=== PATIENT | female | born 2000 | race Caucasian/White ===

== ENCOUNTER → 2024-02-23 | Outpatient (CLI) | payer BC, SELFPAY ==
[2024-02-23 17:11] LABS: Beta HCG,Quantitative 89 mIU/mL (<5.0)
[2024-03-02 13:38] LABS: Progesterone,LC/MS* 19.3 ng/mL
== END | disposition home or self-care (01) ==
LOC: SLDO 15:28
PROVIDERS: Referring Provider Specialist; Visit Provider Specialist
DX: N91.1 Secondary amenorrhea (principal)
CPT/HCPCS: 36415; 84144; 84702

== ENCOUNTER → 2024-02-27 | Outpatient (CLI) | payer BC, SELFPAY ==
[2024-02-27 17:56] LABS: Beta HCG,Quantitative 558 mIU/mL (<5.0)
[2024-03-06 06:45] LABS: Progesterone,LC/MS* 16.7 ng/mL
== END | disposition home or self-care (01) ==
LOC: SLDO 16:14
PROVIDERS: Referring Provider Specialist; Visit Provider Specialist
DX: N91.1 Secondary amenorrhea (principal)
CPT/HCPCS: 36415; 84144; 84702

== ENCOUNTER → 2024-03-01 | Outpatient (CLI) | payer BC, SELFPAY ==
[2024-03-01 10:04] LABS: Quantiferon-TB* See Sep Rpt
== END | disposition home or self-care (01) ==
LOC: COPL 09:45
PROVIDERS: PCP Registered Nurse; Referring Provider Registered Nurse; Visit Provider Registered Nurse
DX: Z11.1 Encounter for screening for respiratory tuberculosis (principal)
CPT/HCPCS: 86480

== ENCOUNTER → 2024-03-15 | Outpatient (CLI) | payer BC, SELFPAY ==
[2024-03-15 11:02] LABS: Collection Type, Urine Clean Catch
[2024-03-15 11:22] LABS: Basophils # (Auto) 0.1 Thou/mm3 (0.0-0.2); Basophils % (Auto) 1 % (0-2.5); Eosinophils # (Auto) 0.1 Thou/mm3 (0.0-0.5); Eosinophils % (Auto) 1 % (0-10); Hematocrit 35.8 % (36.0-46.0); Immature Granulocytes % (Auto) 0 % (0-0); Immature Granulocytes Auto 0.02 Thou/mm3 (0.00-0.00); Lymphocytes # (Auto) 2.8 Thou/mm3 (1.0-4.8); Lymphocytes % (Auto) 31 % (10-50); Mean Corpuscular HGB Conc 33.5 g/dl (31.0-37.0); Mean Corpuscular Hemoglobin 29.6 pg (25.0-35.0); Mean Corpuscular Volume 88 fL (80-100); Monocytes # (Auto) 0.6 Thou/mm3 (0.0-0.8); Monocytes % (Auto) 7 % (0-12); Neutrophils # (Auto) 5.4 Thou/mm3 (1.8-7.7); Neutrophils % (Auto) 60 % (37-80); Nucleated Red Blood Cell % 0 /100 WBC (0); Platelet Count 219 Thou/mm3 (140-440); RDW Standard Deviation 40.8 fL (36.4-46.3); Red Blood Count 4.06 Miln/mm3 (4.00-5.20)
[2024-03-15 11:25] LABS: Bacteria,Urine Rare; Bilirubin,Urine Negative (Negative); Blood,Urine 2+ (Negative); Clarity,Urine Clear (Clear/Hazy); Color,Urine Yellow (Lt Yel-Yel); Glucose, Urine Negative (Negative); Ketones,Urine Negative (Negative); Leukocyte Esterase,Urine Positive (Negative); Nitrite,Urine Negative (Negative); PH,Urine 6.5 (5.0-7.0); Protein,Urine Trace (Neg - Trace); RBC,Urine 7 /hpf (0-3); Specific Gravity,Urine 1.029 (1.001-1.035); Squamous Epithelial Cell,Urine 3 /hpf (0-5); Urobilinogen,Urine Negative mg/dL (0.0-1.0); WBC,Urine 4 /hpf (0-5)
== END | disposition home or self-care (01) ==
LOC: COPL 10:21
PROVIDERS: PCP Family Medicine; Referring Provider Registered Nurse; Visit Provider Registered Nurse
DX: Z01.89 Encounter for other specified special examinations (principal)
CPT/HCPCS: 36415; 81001; 85025

== ENCOUNTER → 2024-03-26 | Outpatient (CLI) | payer BC, SELFPAY ==
[2024-03-26 17:56] LABS: Calcium 9.9 mg/dL (8.3-10.6)
[2024-03-26 18:02] LABS: Ferritin 142 ng/mL (7.3-270.7)
[2024-03-26 19:27] LABS: Folate > 24.00 ng/mL (>5.38); Vitamin B12 765 pg/mL (211-911); Vitamin D 25 Hydroxy Total 40.1 ng/mL (7.3-40.2)
== END | disposition home or self-care (01) ==
LOC: SLDO 16:47
PROVIDERS: Referring Provider Specialist; Visit Provider Specialist
DX: Z98.84 Bariatric surgery status (principal)
CPT/HCPCS: 36415; 82306; 82310; 82607; 82728; 82746

== ENCOUNTER → 2024-04-26 | Outpatient (CLI) | payer BC, SELFPAY ==
[2024-04-26 15:19] LABS: Collection Type, Urine Clean Catch
[2024-04-26 16:54] LABS: Amphetamine/Methamp Scrn,U Negative (Negative); Barbiturate Screen,Urine Negative (Negative); Benzodiazepines Screen,Urine Negative (Negative); Benzoylecgonine Screen, Ur Negative (Negative); Fentanyl Screen,Urine Negative (Negative); Opiate Screen,Urine Negative (Negative); THC Screen,Urine Negative (Negative)
[2024-04-26 16:59] LABS: Bilirubin,Urine Negative (Negative); Blood,Urine 1+ (Negative); Calcium Oxalate Crystals,Urine 1+; Clarity,Urine Clear (Clear/Hazy); Color,Urine Yellow (Lt Yel-Yel); Glucose, Urine Negative (Negative); Ketones,Urine Negative (Negative); Leukocyte Esterase,Urine Negative (Negative); Nitrite,Urine Negative (Negative); Protein,Urine Trace (Neg - Trace); RBC,Urine 15 /hpf (0-3); Specific Gravity,Urine 1.036 (1.001-1.035); Squamous Epithelial Cell,Urine 3 /hpf (0-5); Urobilinogen,Urine Negative mg/dL (0.0-1.0); WBC,Urine 1 /hpf (0-5)
[2024-04-27 10:13] LABS: BVAG Candida Negative (Negative); Bacterial Vaginosis Markers Negative (Negative); Candida glabrata Negative (Negative); Candida krusei PCR Negative (Negative); Trichomonas Negative (Negative)
== END | disposition home or self-care (01) ==
LOC: SLDO 14:41
PROVIDERS: Referring Provider Physician Assistant Medical; Visit Provider Physician Assistant Medical
DX: Z34.81 Encounter for supervision of other normal pregnancy, first trimester (principal); B37.89 Other sites of candidiasis; Z76.0 Encounter for issue of repeat prescription; A59.01 Trichomonal vulvovaginitis
CPT/HCPCS: 80307; 81001; 81514; 87077; 87086; 87186

== ENCOUNTER → 2024-05-21 | Outpatient (CLI) | payer BC, SELFPAY ==
[2024-05-21 14:35] LABS: Misc Send Out* See Sep Rpt
[2024-05-21 15:42] LABS: Basophils % (Auto) 0 % (0-2.5); Eosinophils # (Auto) 0.1 Thou/mm3 (0.0-0.5); Eosinophils % (Auto) 1 % (0-10); Hematocrit 32.6 % (36.0-46.0); Hemoglobin 11.2 g/dL (12.0-16.0); Immature Granulocytes % (Auto) 0 % (0-0); Immature Granulocytes Auto 0.04 Thou/mm3 (0.00-0.00); Lymphocytes # (Auto) 2.3 Thou/mm3 (1.0-4.8); Lymphocytes % (Auto) 20 % (10-50); Mean Corpuscular HGB Conc 34.4 g/dl (31.0-37.0); Mean Corpuscular Hemoglobin 30.8 pg (25.0-35.0); Mean Corpuscular Volume 90 fL (80-100); Monocytes # (Auto) 0.6 Thou/mm3 (0.0-0.8); Monocytes % (Auto) 5 % (0-12); Neutrophils # (Auto) 8.1 Thou/mm3 (1.8-7.7); Neutrophils % (Auto) 73 % (37-80); Nucleated Red Blood Cell % 0 /100 WBC (0); Platelet Count 252 Thou/mm3 (140-440); RDW Standard Deviation 44.3 fL (36.4-46.3); Red Blood Count 3.64 Miln/mm3 (4.00-5.20); White Blood Count 11.1 Thou/mm3 (3.6-11.0)
[2024-05-21 16:18] LABS: Creatinine (Component) 0.6 mg/dL (0.6-1.3); Glucose 84 mg/dL (74-106); eGFR > 60 See Note
[2024-05-21 16:19] LABS: Hepatitis B Surface Antigen Non Reactive (Non React); Rubella, IgG Antibody Reactive (Immune)
[2024-05-21 16:35] LABS: Glucose Estimated Average 82 mg/dL (80-131); Hemoglobin A1C 4.5 % Hgb (4.8-6.0)
[2024-05-21 16:48] LABS: Beta HCG,Quantitative 21747 mIU/mL (<5.0)
[2024-05-25 06:38] LABS: HIV Ag/Ab, 4th Gen NON-REACTIVE
== END | disposition home or self-care (01) ==
LOC: COPL 14:13
PROVIDERS: PCP Family Medicine; Referring Provider Physician Assistant Medical; Visit Provider Physician Assistant Medical
DX: Z34.81 Encounter for supervision of other normal pregnancy, first trimester (principal); Z3A.00 Weeks of gestation of pregnancy not specified
CPT/HCPCS: 36415; 81220; 82565; 82947; 83036; 84702; 85025; 86762; 86803; 86850; 86900; 86901; 87340; 87389

== ENCOUNTER → 2024-05-25 | Outpatient (CLI) | payer BC, SELFPAY ==
[2024-05-25 18:04] LABS: Free T4 (Free Thyroxine) 1.19 ng/dL (0.89-1.76); Thyroid Stimulating Hormone 0.87 uIU/mL (0.55-4.78)
== END | disposition home or self-care (01) ==
LOC: SLDO 15:32
PROVIDERS: Referring Provider Specialist; Visit Provider Specialist
DX: Z34.82 Encounter for supervision of other normal pregnancy, second trimester (principal)
CPT/HCPCS: 36415; 81514; 84439; 84443; 87086

== ENCOUNTER → 2024-06-22 | Outpatient (CLI) | payer BC, SELFPAY ==
[2024-06-22 12:03] LABS: Basophils % (Auto) 0 % (0-2.5); Eosinophils # (Auto) 0.1 Thou/mm3 (0.0-0.5); Eosinophils % (Auto) 1 % (0-10); Hematocrit 33.6 % (36.0-46.0); Hemoglobin 11.2 g/dL (12.0-16.0); Immature Granulocytes % (Auto) 0 % (0-0); Immature Granulocytes Auto 0.02 Thou/mm3 (0.00-0.00); Lymphocytes # (Auto) 2.2 Thou/mm3 (1.0-4.8); Lymphocytes % (Auto) 22 % (10-50); Mean Corpuscular HGB Conc 33.3 g/dl (31.0-37.0); Mean Corpuscular Volume 93 fL (80-100); Monocytes # (Auto) 0.6 Thou/mm3 (0.0-0.8); Monocytes % (Auto) 6 % (0-12); Neutrophils % (Auto) 71 % (37-80); Nucleated Red Blood Cell % 0 /100 WBC (0); Platelet Count 220 Thou/mm3 (140-440); RDW Standard Deviation 45.5 fL (36.4-46.3); Red Blood Count 3.61 Miln/mm3 (4.00-5.20); White Blood Count 9.9 Thou/mm3 (3.6-11.0)
[2024-06-22 12:24] LABS: Ferritin 67 ng/mL (7.3-270.7); Iron 77 mcg/dL (50-170)
[2024-06-22 12:31] LABS: Albumin, Serum 3.7 gm/dL (3.5-5.0); Albumin/Globulin Ratio 1.4 (1.2-2.2); Alkaline Phosphatase 53 U/L (46-116); Anion Gap 7 (7-16); Aspartate Amino Transferase 10 U/L (0-34); BUN/Creatinine Ratio 10 Ratio (12-20); Bilirubin,Total 0.4 mg/dL (0.3-1.2); Blood Urea Nitrogen 6 mg/dL (9-23); Calcium 9.1 mg/dL (8.3-10.6); Calcium (Corrected) 9.3 mg/dL (8.5-10.1); Carbon Dioxide 25.2 mMol/L (20.0-31.0); Chloride 107 mMol/L (98-107); Creatinine (Component) 0.6 mg/dL (0.6-1.3); Free T4 (Free Thyroxine) 1.15 ng/dL (0.89-1.76); Globulin 2.6 gm/dL (2.3-3.5); Glucose 86 mg/dL (74-106); Osmolality,Calculated 274 (275-295); Potassium 4.5 mMol/L (3.4-5.1); Sodium 139 mMol/L (136-145); Thyroid Stimulating Hormone 1.04 uIU/mL (0.55-4.78); Total Protein 6.3 gm/dL (5.7-8.2); eGFR > 60 See Note
[2024-06-22 12:32] LABS: Alanine Aminotransferase < 7 U/L (10-49)
[2024-06-22 13:04] LABS: Vitamin B12 432 pg/mL (211-911)
[2024-06-22 13:20] LABS: Folate > 24.00 ng/mL (>5.38); Vitamin D 25 Hydroxy Total 32.9 ng/mL (7.3-40.2)
== END | disposition home or self-care (01) ==
LOC: COPL 11:16
PROVIDERS: PCP Family Medicine; Referring Provider Physician Assistant Medical; Visit Provider Physician Assistant Medical
DX: Z98.84 Bariatric surgery status (principal)
CPT/HCPCS: 36415; 80053; 82306; 82607; 82728; 82746; 83540; 84439; 84443; 85025

== ENCOUNTER → 2024-07-20 | Outpatient (CLI) | payer BC, SELFPAY | END | disposition home or self-care (01) | LOC: SLDO 14:41 | PROVIDERS: Referring Provider Physician Assistant Medical; Visit Provider Physician Assistant Medical | DX: Z34.82 Encounter for supervision of other normal pregnancy, second trimester (principal) | CPT/HCPCS: 87086 ==

== ENCOUNTER → 2024-08-22 | Outpatient (CLI) | payer BC, SELFPAY ==
[2024-08-22 16:32] LABS: Basophils # (Auto) 0.1 Thou/mm3 (0.0-0.2); Basophils % (Auto) 1 % (0-2.5); Eosinophils # (Auto) 0.1 Thou/mm3 (0.0-0.5); Eosinophils % (Auto) 1 % (0-10); Hematocrit 35.9 % (36.0-46.0); Immature Granulocytes % (Auto) 1 % (0-0); Immature Granulocytes Auto 0.04 Thou/mm3 (0.00-0.00); Lymphocytes # (Auto) 1.7 Thou/mm3 (1.0-4.8); Lymphocytes % (Auto) 20 % (10-50); Mean Corpuscular HGB Conc 33.4 g/dl (31.0-37.0); Mean Corpuscular Hemoglobin 31.2 pg (25.0-35.0); Mean Corpuscular Volume 93 fL (80-100); Monocytes # (Auto) 0.4 Thou/mm3 (0.0-0.8); Monocytes % (Auto) 5 % (0-12); Neutrophils # (Auto) 6.2 Thou/mm3 (1.8-7.7); Neutrophils % (Auto) 73 % (37-80); Nucleated Red Blood Cell % 0 /100 WBC (0); Platelet Count 254 Thou/mm3 (140-440); RDW Standard Deviation 45.6 fL (36.4-46.3); Red Blood Count 3.85 Miln/mm3 (4.00-5.20); White Blood Count 8.5 Thou/mm3 (3.6-11.0)
[2024-08-22 16:46] LABS: Vitamin B12 409 pg/mL (211-911); Vitamin D 25 Hydroxy Total 40.2 ng/mL (7.3-40.2)
[2024-08-22 17:23] LABS: Syphilis Nonreactive (Nonreactive)
== END | disposition home or self-care (01) ==
LOC: SLDO 14:39
PROVIDERS: Referring Provider Specialist; Visit Provider Specialist
DX: Z98.84 Bariatric surgery status (principal)
CPT/HCPCS: 36415; 82306; 82607; 85025; 86780; 87086

== ENCOUNTER → 2024-08-29 | Outpatient (CLI) | payer BC, SELFPAY ==
[2024-08-29 14:59] LABS: Basophils % (Auto) 0 % (0-2.5); Eosinophils # (Auto) 0.1 Thou/mm3 (0.0-0.5); Eosinophils % (Auto) 1 % (0-10); Hematocrit 33.8 % (36.0-46.0); Hemoglobin 11.7 g/dL (12.0-16.0); Immature Granulocytes % (Auto) 0 % (0-0); Immature Granulocytes Auto 0.03 Thou/mm3 (0.00-0.00); Lymphocytes # (Auto) 1.6 Thou/mm3 (1.0-4.8); Lymphocytes % (Auto) 18 % (10-50); Mean Corpuscular HGB Conc 34.6 g/dl (31.0-37.0); Mean Corpuscular Hemoglobin 31.3 pg (25.0-35.0); Mean Corpuscular Volume 90 fL (80-100); Monocytes # (Auto) 0.5 Thou/mm3 (0.0-0.8); Monocytes % (Auto) 6 % (0-12); Neutrophils # (Auto) 6.4 Thou/mm3 (1.8-7.7); Neutrophils % (Auto) 75 % (37-80); Nucleated Red Blood Cell % 0 /100 WBC (0); Platelet Count 224 Thou/mm3 (140-440); RDW Standard Deviation 43.6 fL (36.4-46.3); Red Blood Count 3.74 Miln/mm3 (4.00-5.20); White Blood Count 8.6 Thou/mm3 (3.6-11.0)
[2024-08-29 15:03] LABS: Parathyroid Hormone Intact 13.3 pg/ml (18.5-88.0)
[2024-08-29 15:15] LABS: Alanine Aminotransferase 8 U/L (10-49); Albumin, Serum 3.9 gm/dL (3.5-5.0); Albumin/Globulin Ratio 1.6 (1.2-2.2); Alkaline Phosphatase 63 U/L (46-116); Anion Gap 8 (7-16); Aspartate Amino Transferase 11 U/L (0-34); BUN/Creatinine Ratio 10 Ratio (12-20); Bilirubin,Total 0.3 mg/dL (0.3-1.2); Blood Urea Nitrogen 6 mg/dL (9-23); Calcium (Corrected) 9.1 mg/dL (8.5-10.1); Carbon Dioxide 23.7 mMol/L (20.0-31.0); Chloride 107 mMol/L (98-107); Creatinine (Component) 0.6 mg/dL (0.6-1.3); Ferritin 23 ng/mL (7.3-270.7); Globulin 2.5 gm/dL (2.3-3.5); Glucose 108 mg/dL (74-106); Iron 74 mcg/dL (50-170); Osmolality,Calculated 276 (275-295); Sodium 139 mMol/L (136-145); Total Iron Binding Capacity 400 mcg/dL (250-425); Total Protein 6.4 gm/dL (5.7-8.2); eGFR > 60 See Note
[2024-08-29 15:20] LABS: Folate > 24.00 ng/mL (>5.38); Vitamin B12 438 pg/mL (211-911)
[2024-09-04 07:03] LABS: Vitamin D,1,25 (OH)2,Total 146 pg/mL (18-72)
[2024-09-04 07:04] LABS: Vitamin D2, 1,25 (OH)2 <8 pg/mL; Vitamin D3, 1,25 (OH)2 146 pg/mL
[2024-09-05 06:44] LABS: Vitamin B1 (Thiamine)* 15 nmol/L (8-30); Vitamin B6, Plasma* 11.1 ng/mL (2.1-21.7)
== END | disposition home or self-care (01) ==
LOC: COPL 14:04
PROVIDERS: PCP Family Medicine; Referring Provider Nurse Practitioner Primary Care; Visit Provider Nurse Practitioner Primary Care
DX: O99.212 Obesity complicating pregnancy, second trimester (principal); E66.811 Obesity, class 1; K91.2 Postsurgical malabsorption, not elsewhere classified; Z3A.16 16 weeks gestation of pregnancy; Z90.3 Acquired absence of stomach [part of]; O99.842 Bariatric surgery status complicating pregnancy, second trimester; O99.612 Diseases of the digestive system complicating pregnancy, second trimester
CPT/HCPCS: 36415; 80053; 82607; 82652; 82728; 82746; 83540; 83550; 83970; 84207; 84425; 85025

== ENCOUNTER → 2024-09-04 | Outpatient (CLI) | payer BC, SELFPAY ==
[2024-09-04 14:22] LABS: Basophils # (Auto) 0.1 Thou/mm3 (0.0-0.2); Basophils % (Auto) 1 % (0-2.5); Eosinophils # (Auto) 0.1 Thou/mm3 (0.0-0.5); Eosinophils % (Auto) 1 % (0-10); Hematocrit 33.7 % (36.0-46.0); Hemoglobin 11.5 g/dL (12.0-16.0); Immature Granulocytes % (Auto) 0 % (0-0); Immature Granulocytes Auto 0.04 Thou/mm3 (0.00-0.00); Lymphocytes % (Auto) 21 % (10-50); Mean Corpuscular HGB Conc 34.1 g/dl (31.0-37.0); Mean Corpuscular Hemoglobin 31.3 pg (25.0-35.0); Mean Corpuscular Volume 92 fL (80-100); Monocytes # (Auto) 0.6 Thou/mm3 (0.0-0.8); Monocytes % (Auto) 6 % (0-12); Neutrophils # (Auto) 6.9 Thou/mm3 (1.8-7.7); Neutrophils % (Auto) 72 % (37-80); Nucleated Red Blood Cell % 0 /100 WBC (0); Platelet Count 220 Thou/mm3 (140-440); Red Blood Count 3.67 Miln/mm3 (4.00-5.20); White Blood Count 9.6 Thou/mm3 (3.6-11.0)
[2024-09-04 14:30] LABS: Fibrinogen 430 mg/dL (175-375); Partial Thromboplastin Time 29.2 Seconds (22.0-36.0); Prothrombin Time 10.6 Seconds (9.0-12.2)
[2024-09-04 14:30] LABS: Creatinine,Random Urine 80 mg/dL (30-125); Protein Total, Random Urine 12 mg/dL (1-14)
[2024-09-04 14:52] LABS: Alanine Aminotransferase < 7 U/L (10-49); Albumin, Serum 3.9 gm/dL (3.5-5.0); Albumin/Globulin Ratio 1.6 (1.2-2.2); Alkaline Phosphatase 66 U/L (46-116); Anion Gap 7 (7-16); Aspartate Amino Transferase 12 U/L (0-34); BUN/Creatinine Ratio 10 Ratio (12-20); Bilirubin,Total 0.4 mg/dL (0.3-1.2); Blood Urea Nitrogen 6 mg/dL (9-23); Calcium 8.6 mg/dL (8.3-10.6); Calcium (Corrected) 8.7 mg/dL (8.5-10.1); Carbon Dioxide 24.6 mMol/L (20.0-31.0); Chloride 103 mMol/L (98-107); Creatinine (Component) 0.6 mg/dL (0.6-1.3); Globulin 2.5 gm/dL (2.3-3.5); Glucose 82 mg/dL (74-106); Osmolality,Calculated 266 (275-295); Potassium 4.4 mMol/L (3.4-5.1); Sodium 135 mMol/L (136-145); Total Protein 6.4 gm/dL (5.7-8.2); Uric Acid 4.2 mg/dL (3.1-7.8); eGFR > 60 See Note
== END | disposition home or self-care (01) ==
LOC: COPL 13:19
PROVIDERS: PCP Family Medicine; Referring Provider Physician Assistant Medical; Visit Provider Physician Assistant Medical
DX: R03.0 Elevated blood-pressure reading, without diagnosis of hypertension (principal)
CPT/HCPCS: 36415; 80053; 82570; 84156; 84550; 85025; 85384; 85610; 85730

== ENCOUNTER → 2024-09-06 | Outpatient (CLI) | payer BC, SELFPAY ==
[2024-09-06 12:19] LABS: Creatinine, Urine Volume 2575 mL/24hr (600-1800); Protein Total, Urine Volume 2575 mL/24hr (600-1800)
[2024-09-06 12:35] LABS: Creatinine, 24 Hour Urine 1.1 gm/24hr (0.6-1.8); Creatinine,Urine 43 mg/dL (30-125); Protein Total, 24 hr Urine 154 mg/24hr (<149); Protein Total, Urine < 6 mg/dL (1-14)
== END | disposition home or self-care (01) ==
LOC: SLDO 11:18
PROVIDERS: Referring Provider Physician Assistant Medical; Visit Provider Physician Assistant Medical
DX: R03.0 Elevated blood-pressure reading, without diagnosis of hypertension (principal)
CPT/HCPCS: 82570; 84156

== ENCOUNTER 2024-10-02 11:26 | Outpatient (CLI) | payer BC, SELFPAY ==
[2024-10-02 11:31] VITALS: BP 137/87; PULSE 107; RESP 16; RESP 96; TEMP 36.7
[2024-10-02 11:33] VITALS: PULSE 105; O2SAT 96
[2024-10-02 11:38] VITALS: PULSE 105; O2SAT 98
[2024-10-02 11:39] VITALS: BMI 34.7
[2024-10-02 11:43] VITALS: PULSE 97; O2SAT 98
[2024-10-02 11:48] VITALS: PULSE 99; O2SAT 97
[2024-10-02 11:51] VITALS: BP 126/82; PULSE 101
== END 2024-10-02 12:00 | disposition home or self-care (01) ==
LOC: S4S1 11:27 → S4SX 11:27
PROVIDERS: Referring Provider Obstetrics & Gynecology; Visit Provider Obstetrics & Gynecology
DX: Z36.89 Encounter for other specified antenatal screening (principal); Z34.03 Encounter for supervision of normal first pregnancy, third trimester; Z3A.35 35 weeks gestation of pregnancy
CPT/HCPCS: 59025

== ENCOUNTER → 2024-10-02 | Outpatient (CLI) | payer BC, SELFPAY | END | disposition home or self-care (01) | LOC: SLDO 14:39 | PROVIDERS: Referring Provider Physician Assistant Medical; Visit Provider Physician Assistant Medical | DX: Z34.83 Encounter for supervision of other normal pregnancy, third trimester (principal) | CPT/HCPCS: 87086 ==

== ENCOUNTER → 2024-10-09 | Outpatient (CLI) | payer BC, SELFPAY ==
[2024-10-10 07:39] LABS: BVAG Candida Negative (Negative); Bacterial Vaginosis Markers Negative (Negative); Candida glabrata Negative (Negative); Candida krusei PCR Negative (Negative); Trichomonas Negative (Negative)
== END | disposition home or self-care (01) ==
LOC: SLDO 14:36
PROVIDERS: Referring Provider Specialist; Visit Provider Specialist
DX: Z34.83 Encounter for supervision of other normal pregnancy, third trimester (principal)
CPT/HCPCS: 81514

== ENCOUNTER 2024-10-11 17:18 | Observation (INO) | payer BC, SELFPAY ==
[2024-10-11 17:22] VITALS: BMI 35.0
[2024-10-11 17:33] VITALS: BP 142/87; PULSE 96
[2024-10-11 17:44] VITALS: BP 142/87; PULSE 96; RESP 18; RESP 99; TEMP 36.7
[2024-10-11 18:01] LABS: ROM Kit Exp Date# 11152027; ROM Kit Lot # 58102387; ROM Swab Mixed By: SAUCT; Rupture of Fetal Membranes Negative (Negative); Swb Mxed in Solvent 1 min? Yes
== END 2024-10-11 18:25 | disposition home or self-care (01) ==
PROVIDERS: Admitting Provider Specialist; Visit Provider Specialist
DX: Z34.03 Encounter for supervision of normal first pregnancy, third trimester (principal); Z3A.40 40 weeks gestation of pregnancy
CPT/HCPCS: 59025; 59899; 84112

== ENCOUNTER 2024-10-24 19:00 | Observation (INO) | payer BC, SELFPAY ==
[2024-10-24 19:25] VITALS: BMI 34.7
[2024-10-24 19:40] VITALS: BP 133/78; PULSE 96
[2024-10-24 20:09] VITALS: BP 116/77; PULSE 90
[2024-10-24 20:40] VITALS: BP 132/78; PULSE 85
[2024-10-24 21:08] VITALS: BP 117/68; PULSE 74
== END 2024-10-24 21:35 | disposition home or self-care (01) ==
PROVIDERS: Admitting Provider Obstetrics & Gynecology; Visit Provider Obstetrics & Gynecology
DX: O9A.213 Injury, poisoning and certain other consequences of external causes complicating pregnancy, third trimester (principal); S39.91XA Unspecified injury of abdomen, initial encounter; Z3A.38 38 weeks gestation of pregnancy; W19.XXXA Unspecified fall, initial encounter
CPT/HCPCS: 59025; 59899

== ENCOUNTER 2024-11-01 19:44 | Observation (INO) | payer BC, SELFPAY ==
[2024-11-01] VITALS (29 sets, daily range): BP systolic 95–127; BP diastolic 55–79; PULSE 58–91; RESP 18; TEMP 36.9; O2SAT 94–99; BMI 35.0
[2024-11-01 21:14] LABS: Collection Type, Urine Clean Catch
[2024-11-01 21:31] LABS: Bilirubin,Urine Negative (Negative); Blood,Urine Negative (Negative); Clarity,Urine Clear (Clear/Hazy); Color,Urine Lt-Yellow (Lt Yel-Yel); Glucose, Urine Negative (Negative); Ketones,Urine Negative (Negative); Leukocyte Esterase,Urine Negative (Negative); Nitrite,Urine Negative (Negative); PH,Urine 6.5 (5.0-7.0); Protein,Urine Negative (Neg - Trace); RBC,Urine 1 /hpf (0-3); Specific Gravity,Urine 1.009 (1.001-1.035); Squamous Epithelial Cell,Urine < 1 /hpf (0-5); Urobilinogen,Urine Negative mg/dL (0.0-1.0); WBC,Urine 1 /hpf (0-5)
[2024-11-01] MEDS: ACETAMINOPHEN 500 MG TABLET 1000 MG PO (21:58)
== END 2024-11-01 22:07 | disposition home or self-care (01) ==
PROVIDERS: Admitting Provider Obstetrics & Gynecology; Visit Provider Obstetrics & Gynecology
DX: O26.893 Other specified pregnancy related conditions, third trimester (principal); Z3A.39 39 weeks gestation of pregnancy; R10.9 Unspecified abdominal pain
CPT/HCPCS: 59025; 59899; 81001; A9270

== ENCOUNTER 2024-11-02 10:27 | Outpatient (CLI) | payer BC, SELFPAY ==
[2024-11-02] VITALS (24 sets, daily range): BP systolic 119; BP diastolic 73; PULSE 72–106; RESP 16–97; TEMP 36.5; O2SAT 92–97; BMI 35.1
--- NOTE | 2024-11-02 12:30 | XR_ITS ---
Examination: Complete OB ultrasound greater than 14 weeks Date and time of exam: November 02, 2024 1326 hours INDICATIONS: Onset decreased movement today Findings: Viable intrauterine single fetus with single amniotic sac presentation cephalic spine maternal left Cardiac motion 145 BPM Placenta posterior grade 2 Umbilical cord insertion 3 vessel seen Amniotic fluid index 19.1 cm Cervix 3.3 cm Ovaries obscured by bowel gas. Composite estimated gestational age based on BPD, head circumference, abdominal circumference, femur length is 39 weeks 3 days Estimated weight 3649 g. Survey of intracranial anatomy, spinal anatomy, abdominal anatomy, four-chamber heart performed with no abnormalities identified. Impression: Viable intrauterine gestation cephalic presentation.
--- NOTE | 2024-11-02 12:30 | XR_ITS ---
Examination: Biophysical profile, ultrasound Date and time of exam: November 02, 2024 1319 hours INDICATIONS: Decreased movement today Technique: Multiple transabdominal sonographic images of the pelvis abdomen obtained. Attention is directed to the breathing movement, gross body movement, amniotic fluid volume and tone. Findings: Amniotic fluid index 13.3 cm Total biophysical profile is 8 of 8. breathing movement is 2. Gross body movement is 2. tone is 2. Qualitative amniotic fluid volume is 2 Impression: Biophysical profile is 8 of 8.
== END 2024-11-02 15:11 | disposition home or self-care (01) ==
LOC: S4S1 10:28 → S4SX 10:29
PROVIDERS: Referring Provider Obstetrics & Gynecology; Visit Provider Obstetrics & Gynecology
DX: Z34.03 Encounter for supervision of normal first pregnancy, third trimester (principal); Z36.9 Encounter for antenatal screening, unspecified; Z3A.39 39 weeks gestation of pregnancy
CPT/HCPCS: 59025; 76805; 76819

== ENCOUNTER 2024-11-10 17:28 | Outpatient (CLI) | payer BC, SELFPAY ==
[2024-11-10 17:28] VITALS: BP 100/58; PULSE 103; RESP 16; RESP 98; TEMP 36.7; BMI 35.3
[2024-11-10 17:36] VITALS: BP 100/58; PULSE 103
== END 2024-11-10 18:16 | disposition home or self-care (01) ==
LOC: S4S1 17:29 → S4SX 17:35
PROVIDERS: Referring Provider Specialist; Visit Provider Specialist
DX: Z34.90 Encounter for supervision of normal pregnancy, unspecified, unspecified trimester (principal); Z3A.00 Weeks of gestation of pregnancy not specified
CPT/HCPCS: 59025

== ENCOUNTER 2024-11-11 10:14 | Inpatient (IN) | payer BC, SELFPAY ==
[2024-11-11] VITALS (72 sets, daily range): BP systolic 66–140; BP diastolic 36–91; PULSE 58–101; RESP 14–20; TEMP 36.1–36.9; O2SAT 89–100; BMI 35.3
[2024-11-11] MEDS: RINGERS LACTATED 1000 ML 1,000 ML 100 ML IV ×3 (10:45→12:20)
--- NOTE | 2024-11-11 11:21 | PD.LDHP ---
Documentation for date of: 11/11/24 OB Labor/Induct. HPI History of Present Illness : 1 Term pregnancies: 0 pregnancies: 0 Living children: 0 History of Abortions: Spontaneous and Elective: 0 History of sections: No History of : No History of present illness: dictated in [facility] [id number] Past Medical History Surgical History SURGICAL: Negative Section Meds Home Medications and Allergies Home Medications ?Medication ?Instructions ?Recorded ?Confirmed ?Type albuterol sulfate 90 mcg/actuation 1 puff inhalation Q4H PRN 10/24/24 11/10/24 History aerosol inhaler shortness of breath or wheezing Held on 11/01/24. Instructions: patient not taking currently last use 1 year ago loratadine 10 mg tablet 10 mg PO QDAY 10/24/24 11/10/24 History omeprazole 40 mg capsule,delayed 40 mg PO QDAY 10/24/24 11/10/24 History release vit no.95-ferrous 1 tab PO QDAY 10/24/24 11/10/24 History fumarate 28 mg-folic acid 800 mcg tablet () Allergies Allergy/AdvReac Type Severity Reaction Status Date / Time No Known Allergies Allergy Verified 11/10/24 18:27 OB Exam Physical Exam Vital signs: Pulse BP Pulse Ox 83 116/71 100 11/11/24 11:18 11/11/24 11:18 11/11/24 11:19 OB Results Labs 11/11/24 10:45
[2024-11-11 11:23] LABS: Basophils # (Auto) 0.0 Thou/mm3 (0.0-0.2); Basophils % (Auto) 0 % (0-2.5); Eosinophils # (Auto) 0.1 Thou/mm3 (0.0-0.5); Eosinophils % (Auto) 1 % (0-10); Hematocrit 34.4 % (36.0-46.0); Hemoglobin 11.6 g/dL (12.0-16.0); Immature Granulocytes Auto 0.04 Thou/mm3 (0.00-0.00); Lymphocytes # (Auto) 2.6 Thou/mm3 (1.0-4.8); Lymphocytes % (Auto) 25 % (10-50); Mean Corpuscular HGB Conc 33.7 g/dl (31.0-37.0); Mean Corpuscular Hemoglobin 30.9 pg (25.0-35.0); Mean Corpuscular Volume 92 fL (80-100); Monocytes # (Auto) 0.8 Thou/mm3 (0.0-0.8); Monocytes % (Auto) 8 % (0-12); Neutrophils # (Auto) 6.8 Thou/mm3 (1.8-7.7); Neutrophils % (Auto) 66 % (37-80); Nucleated Red Blood Cell # 0.00 Thou/mm3 (0.00-0.00); Nucleated Red Blood Cell % 0 /100 WBC (0); Platelet Count 282 Thou/mm3 (140-440); RDW Standard Deviation 45.1 fL (36.4-46.3); Red Blood Count 3.75 Miln/mm3 (4.00-5.20); White Blood Count 10.3 Thou/mm3 (3.6-11.0)
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
[2024-11-11 11:55] LABS: Syphilis Nonreactive (Nonreactive)
[2024-11-11] MEDS: FAMOTIDINE INJ 10 MG/ML VIAL 2 ML 20 MG IV (13:01)
[2024-11-11] MEDS: METOCLOPRAMIDE INJ 5 MG/ML VIAL 2 ML 10 MG IVP (14:30)
[2024-11-11] MEDS: ceFAZolin/D5W 2 GM IV 2 GM/100 ML BAG IV (14:31)
--- NOTE | 2024-11-11 15:55 | PD.LDDS ---
DS: Providers Provider Date of admission: 11/11/24 10:14 Primary care physician: Yusef Avery MD Admitting Provider: Yusef Avery MD Attending Provider on Admission: Yusef Avery MD Attending Provider on DC: Yusef Avery MD Discharging Provider: Yusef Avery MD DS: Diagnosis Problem List Completed Was Problem List Reviewed/Reconciled?: Yes Summary/Hosp Course Brief History: dictated in ance [id number] Peripartum Data Delivery Method: Low Transverse Laceration Description: see Delivery Summary Procedures: Procedures Operation Date: 11/11/24 13:15 <No data on this case meets the specified criteria> [place] 1: Disposition of : home Time Spent with Patient Time attestation: Total time spent providing and/or coordinating discharge services: Exam Vital Signs Pulse BP Pulse Ox 81 122/80 98 11/11/24 12:18 11/11/24 12:18 11/11/24 14:33 Discharge Plan Plan Patient Disposition: HOME (Self Care) Patient condition on transfer: Stable Prescriptions/Referrals Prescriptions/Med Rec: New hydrocodone-acetaminophen 5-325 mg tablet 1 tab PO Q6H MDD 4 PRN (Reason: pain) Qty: 20 0RF ibuprofen 600 mg tablet 600 mg PO Q6H MDD 4 PRN (Reason: pain) Qty: 30 0RF Continued omeprazole 40 mg capsule,delayed release(DR/EC) 40 mg PO QDAY Patient Comments: TAKE 1 CAPSULE (40 MG TOTAL) BY MOUTH DAILY. PNV no.95-ferrous fumarate-FA [] 28 mg iron- 800 mcg tablet 1 tab PO QDAY Patient Comments: TAKE 1 TABLET BY MOUTH EVERY DAY loratadine 10 mg tablet 10 mg PO QDAY Patient Comments: Take 1 tablet by mouth once a day Discontinued albuterol sulfate 90 mcg/actuation HFA aerosol inhaler 1 puff INHALATION Q4H PRN (Reason: shortness of breath or wheezing) Patient Comments: INHALE 2 PUFFS BY MOUTH EVERY 4 HOURS NEEDED FOR COUGH OR WHEEZING Referrals: Yusef Avery MD [Primary Care Provider] - Patient/Caregiver Discharge Instructions Discharge Activity: activity as tolerated Other Discharge Activity Instructions:: Follow up office 1 week. Education Materials: C Section Dc Print Language: Occitan Stand Alone Forms: Kamryn Award Info., Patient Portal Info Letter Planned Discharge Date 11/13/24
--- NOTE | 2024-11-11 15:57 | ESOP_ITS ---
Operative Note - IN HOME SALES CONSULTANT Procedure Date of procedure: 11/11/24 Procedure Performed: Primary low-transverse section Via Pfannenstiel skin incision Indication: Intrauterine at 41 weeks gestation Vasovagal near syncope Recurrent prolonged decelerations Uteroplacental insufficiency Pre-Op diagnosis: Intrauterine at 41 weeks gestation Vasovagal near syncope Recurrent prolonged decelerations Uteroplacental insufficiency Post-Op diagnosis: Intrauterine at 41 weeks gestation Vasovagal near syncope Recurrent prolonged decelerations Uteroplacental insufficiency Meconium stained amniotic fluid Tight nuchal cord x 2 Occiput posterior Anesthesia type: Spinal Procedure description: After proper informed consent was obtained and the patient was made aware of the risks, complications, alternatives and benefits of the proposed procedure she was taken to the operating room where she underwent induction of spinal anesthesia. She was prepped and draped in the usual sterile fashion. A timeout was performed.? A Pfannenstiel skin incision was made with the scalpel and carried through to the underlying layer of fascia with the Bovie. The fascia was nicked in the midline incision and the incision was extended bilaterally with the Bovie. The inferior aspect of the fascial incision was grasped with Leon clamps elevated and the underlying rectus muscle dissected off with the Bovie. The superior aspect the fascial incision was grasped with Leon clamps elevated and the underlying rectus muscle dissected off with the Bovie. The rectus muscles were in the midline. The peritoneum was grasped between 2 Peralta clamps and entered sharply with the Metzenbaum scissors. The peritoneum was extended superiorly and inferiorly with good visualization of the bladder. The vesicouterine peritoneum was incised transversely and the bladder flap created digitally. A Neeta blade was inserted. A low transverse incision was made in the uterus with a scapel and the incision was extended digitally. Meconium stain ed amniotic fluid was noted. The infant's head delivered and the mouth and nose were suctioned with the bulb suction. The night nuchal cord was reduced. The shoulder and body delivered atraumatically. The cord was clamped after 30 second delayed cord clamping and the cord was cut.? The viable male was handed off to the waiting Pediatric staff, cord blood and cord gases were collected for lab testing. The placenta was removed complete and intact. The uterus was exteriorized and cleared of all clots and debris. The uterine incision was closed with #1-0 chromic catgut suture in a running interlocking fashion. A second layer of the same suture was used to imbricate the first layer and obtain excellent hemostasis. The vesicouterine peritoneum was closed with 2-0 chromic catgut suture in a running fashion. The firm uterus was returned to the abdomen. The gutters were cleared of all clots and debris. The peritoneum was closed with 0 chromic catgut suture in running fashion. The rectus muscle was closed with 0 chromic catgut suture. The fascia was closed with 0 Vicryl beginning at each angle and ending in the center in a running fashion. The subcutaneous tissue was irrigated with warmed normal saline solution and found to be hemostatic. The subcutaneous tissue was closed with 2-0 chromic catgut suture in a running fashion. The skin was closed with 4-0 Monocryl. A Dermabond Prineo dressing was applied and a sterile pressure dressing was applied.? She tolerated the procedure well. Counts were correct. I discussed with the patient the nature of her condition, intraoperative findings and expectation for recovery all? questions answered. Specimen: none Estimated blood loss (ml): 500 Findings: Live male : Apgars 1 and 8. Cord Blood Gas Arterial pH 7.05. Base excess 10.8. Meconium stained amniotic fluid Nuchal cord x 2 Occiput posterior Uterine atony Ovaries and fallopian tubes grossly within normal limits Placenta removed complete intact Complications: other (Uterine atony) Surgical staff Operation Date: 11/11/24 13:15 <No data on this case meets the specified criteria> HELLEN Jolly CRNA Diagnosis Discharge Diagnosis (1) delivery delivered: Status: Acute (2) Uterine atony: Status: Acute (3) Uteroplacental insufficiency, third trimester: Status: Acute (4) bradycardia affecting management of mother, delivered: Status: Acute (5) Vasovagal near syncope: Status: Acute Problem List Completed Was Problem List Reviewed/Reconciled?: Yes
--- NOTE | 2024-11-11 17:29 | SUR.OPER ---
FHR 134 at 1447. ROM at 1507, meconium. of viable male at 1508. Placenta out at 1510. APGARs 1, 8.
--- NOTE | 2024-11-11 18:49 | OBDSUM_ITS ---
Data (Antonio) Data Hx Section: No : 1 Term: 0 : 0 Livin Abortions: Spontaneous & Theraputic: 0 Delivery Data (Antonio) Labor Data Initiation of labor: Induction Induction/Augmentation Agent: Artificial ROM ROM date: 11/11/24 ROM time: 15:07 Amniotic membrane rupture type: Artificial Amniotic fluid description: Moderate Meconium Delivery Data EDC: 11/03/24 EDC calculated by:: LMP/early US confirmation Onset of labor date: 11/11/24 Onset of labor time: 15:08 Complete dilation date: 11/11/24 Complete dilation time: 15:08 delivery date: 11/11/24 [place] delivery time: 15:08 Gestational age (weeks): 41 Gestational age (days): 1 Placenta delivery date: 11/11/24 Placenta delivery time: 15:10 Stage 1 total time: Labor - Stage 1 Duration 0 minutes Delivered by: [place] Delivery nurse: Chantal CLAIRE Main OR [place] nurse: Paulette Saldaña RN [employer] Machine Operator at delivery: Yes (Dr. Maki) Delivery Method Delivery method: Low Transverse Presentation: Vertex position: OP Anesthesia Type Anesthesia Type: Spinal Anesthesia type: Spinal Placenta Placenta delivery description: Manual Removal Cord blood sent to lab: Yes cord blood collection: Cord Blood Type, Arterial Cord Blood Gas and Venous Cord Blood Gas Episiotomy Episiotomy description: None EBL Estimated blood loss (ml): 600 Umbilical Cord cord description: 3 Vessels Additional Procedures None Complications Complications: Uterine atony [place] Data (Antonio) [place] Data order: 1 [place]'s gender: Male Identification band number: [id number] weight (gms): 9 lb 2.034 oz Weight (pounds): 9 lbs and 2.0 ozs [place] length: 22 in 1 minute: 1 5 minutes: 8
[2024-11-11 21:23] LABS: Basophils # (Auto) 0.0 Thou/mm3 (0.0-0.2); Basophils % (Auto) 0 % (0-2.5); Eosinophils # (Auto) 0.0 Thou/mm3 (0.0-0.5); Eosinophils % (Auto) 0 % (0-10); Hematocrit 37.5 % (36.0-46.0); Hemoglobin 12.7 g/dL (12.0-16.0); Immature Granulocytes Auto 0.08 Thou/mm3 (0.00-0.00); Lymphocytes # (Auto) 0.7 Thou/mm3 (1.0-4.8); Lymphocytes % (Auto) 4 % (10-50); Mean Corpuscular HGB Conc 33.9 g/dl (31.0-37.0); Mean Corpuscular Hemoglobin 31.4 pg (25.0-35.0); Mean Corpuscular Volume 93 fL (80-100); Monocytes # (Auto) 0.4 Thou/mm3 (0.0-0.8); Monocytes % (Auto) 2 % (0-12); Neutrophils # (Auto) 17.8 Thou/mm3 (1.8-7.7); Neutrophils % (Auto) 94 % (37-80); Nucleated Red Blood Cell # 0.00 Thou/mm3 (0.00-0.00); Nucleated Red Blood Cell % 0 /100 WBC (0); Platelet Count 214 Thou/mm3 (140-440); RDW Standard Deviation 45.1 fL (36.4-46.3); Red Blood Count 4.05 Miln/mm3 (4.00-5.20); White Blood Count 19.0 Thou/mm3 (3.6-11.0)
[2024-11-12] MEDS: IBUPROFEN TAB 400 MG TABLET 800 MG PO ×3 (00:38→22:45)
[2024-11-12] MEDS: SIMETHICONE 80 MG CHEW PO ×3 (00:38→11:52)
[2024-11-12] MEDS: OXYTOCIN in NS 20 units 20 UNIT/1,000 ML BAG 125 UNIT IV (00:38)
[2024-11-12 00:45] VITALS: BP 111/70; PULSE 63; RESP 16; TEMP 36.7; O2SAT 97
[2024-11-12 03:10] VITALS: BP 108/69; PULSE 65; RESP 14; TEMP 36.6; O2SAT 97
[2024-11-12] MEDS: DOCUSATE SOD 100 MG CAPSULE PO (07:39)
[2024-11-12] MEDS: ENOXAPARIN SOD INJ 40 MG/0.4 ML SYRINGE SC (07:40)
[2024-11-12] MEDS: HYDROcodone/APAP 5/325 TABLET 1 TAB PO ×2 (07:40→14:11)
[2024-11-12 08:10] VITALS: BP 104/69; PULSE 71; RESP 16; TEMP 36.6; O2SAT 97
--- NOTE | 2024-11-12 08:20 | ESPR_ITS ---
RE: JUAN A ROBERTSON : 2000 DATE OF SERVICE: 11/12/2024 SUBJECTIVE: Postop day #1, the patient denies any problem or complaint. She has got adequate urine output. She is tolerating a regular diet. She is passing flatus. She denies any excessive vaginal bleeding. She denies any dizziness or lightheadedness. She denies any chest pain, palpitations, shortness of breath, or lower extremity pain. OBJECTIVE: Vital Signs: Blood pressure 108/69 mmHg, heart rate 65 bpm, respirations 14, temperature is 97.8, pulse ox is 97% on room air. Lungs: Clear to auscultation bilaterally. Heart: Regular rate and rhythm. Abdomen: Dressing is dry and intact. Fundus is firm. Extremities: Nontender. LABORATORY DATA: Hemoglobin pre-delivery is 11.6, post-delivery is 12.7. ASSESSMENT: Postop day #1, status post delivery. PLAN: Remove dressing. Discontinue IV. Encourage ambulation. Remove Silver catheter. support. Possible discharge home tomorrow. DT: 06:46:16 TT: 08:18:00 Ref: [id number] - TID: [id number]
[2024-11-12 11:55] VITALS: BP 114/74; PULSE 75; RESP 17; TEMP 36.6; O2SAT 97
[2024-11-12 15:51] VITALS: BP 122/85; PULSE 80; RESP 18; TEMP 36.7; O2SAT 97
[2024-11-12] MEDS: HYDROcodone/APAP 5/325 TABLET 2 TAB PO (18:12)
[2024-11-12 20:00] VITALS: BP 109/73; PULSE 83; RESP 16; TEMP 37.1; O2SAT 97
[2024-11-13 04:00] VITALS: BP 107/71; PULSE 97; RESP 15; TEMP 36.5; O2SAT 99
[2024-11-13] MEDS: HYDROcodone/APAP 5/325 TABLET 1 TAB PO ×2 (04:36→11:13)
--- NOTE | 2024-11-13 06:43 | ESPR_ITS ---
RE: JUAN A ROBERTSON : 2000 DATE OF SERVICE: 11/13/2024 SUBJECTIVE: Postop day #2, the patient denies any problem or complaint. She is voiding. She is ambulating. She has tolerated diet. She is passing flatus. She denies any excessive vaginal bleeding. She denies any dizziness or lightheadedness. She denies any chest pain, palpitations, shortness of breath, or lower extremity pain. OBJECTIVE: Vital Signs: Blood pressure 107/71 mmHg, heart rate 97, respirations 15, temperature is 97.7, and pulse oximetry is 99% on room air. Lungs: Clear to auscultation bilaterally. Heart: Regular rate and rhythm. Abdomen: Incision clear and intact. Fundus is firm. Extremities: Nontender. ASSESSMENT: Postop day #2 status post delivery. PLAN: Discharge to home. Discharge instructions were given. Follow up in the office in 1 week. DT: 06:16:00 TT: 06:41:00 Ref: [id number] - TID: [id number]
[2024-11-13 07:40] VITALS: BP 116/76; PULSE 94; RESP 17; TEMP 36.8; O2SAT 97
[2024-11-13] MEDS: ENOXAPARIN SOD INJ 40 MG/0.4 ML SYRINGE SC (08:01)
[2024-11-13] MEDS: IBUPROFEN TAB 400 MG TABLET 800 MG PO (08:02)
[2024-11-13] MEDS: DOCUSATE SOD 100 MG CAPSULE PO (08:02)
--- NOTE | 2024-11-14 08:27 | CHAP ---
Patient was visited by a Spiritual Care Volunteer on 11/13/2024 between 0900 and 1100 and received comfort, encouragement and/or prayer. A Baby blessing was given for and family.
== END 2024-11-13 15:35 | disposition home or self-care (01) | DRG 788 ==
LOC: S4SX 15:44 → S4NX 16:08
PROVIDERS: Admitting Provider Specialist; PCP Specialist; Visit Provider Specialist
PROC: 10D00Z1 Extraction of Products of Conception, Low, Open Approach (ICD-10-PCS; CPT 59514; principal; 2024-11-11 13:00)
DX: O48.0 Post-term pregnancy (principal); O76 Abnormality in fetal heart rate and rhythm complicating labor and delivery; Z37.0 Single live birth; Z3A.41 41 weeks gestation of pregnancy; O77.0 Labor and delivery complicated by meconium in amniotic fluid; O62.2 Other uterine inertia; O16.4 Unspecified maternal hypertension, complicating childbirth; O69.1XX0 Labor and delivery complicated by cord around neck, with compression, not applicable or unspecified
CPT/HCPCS: 36415; 85025; 86780; 86850; 86900; 86901; A4217; A4649; J0131; J0689; J1100; J1650; J1885; J2210; J2274; J2371; J2405; J2590; J2704; J2765; J3010; J3490; J7120; A9270; J1596; J2270

== ENCOUNTER → 2025-02-20 | Outpatient (CLI) | payer BC, SELFPAY ==
[2025-02-21 11:02] LABS: BVAG Candida Negative (Negative); Bacterial Vaginosis Markers Negative (Negative); Candida glabrata Negative (Negative); Candida krusei PCR Negative (Negative); Trichomonas Negative (Negative)
== END | disposition home or self-care (01) ==
LOC: SLDO 14:04
PROVIDERS: Referring Provider Specialist; Visit Provider Specialist
DX: B37.89 Other sites of candidiasis (principal); N76.0 Acute vaginitis; A59.01 Trichomonal vulvovaginitis
CPT/HCPCS: 81514